=== PATIENT | male | born 1970 | race Caucasian/White ===

== ENCOUNTER 2017-01-23 03:49 | Emergency (ER) | payer BC, OTHER ==
[2017-01-23] MEDS ORDERED: Ketorolac 60 MG/2 ML SDV IM ONE (04:07)
[2017-01-23] MEDS ORDERED: Dexamethasone 4 MG/ML SDV IM ONE (04:07)
[2017-01-23] MEDS ORDERED: Ketorolac 60 MG/2 ML SDV ONE (04:10)
[2017-01-23] MEDS ORDERED: Dexamethasone 4 MG/ML SDV ONE (04:10)
--- NOTE | 2017-01-23 04:14 | EDM.PDOC ---
ED HPI GENERAL MEDICAL PROBLEM - General Chief Complaint: Upper Extremity Injury/Pain Stated Complaint: left shoulder pain Time Seen by Provider: 01/23/17 04:07 Source of Information: Reports: Patient History Limitations: Reports: No Limitations - History of Present Illness INITIAL COMMENTS - FREE TEXT/NARRATIVE: PT STATES HE DEVELOPED LEFT SHOULDER PAIN 2 DAYS AGO. TRIED USING AN ARM SLING BUT PAIN PERSISTS. UNABLE TO SLEEP. THINKS IT MAY HAVE STARTED WHEN HE LIFTED GAS CAN. DENIES FALL, FEVER, CP, SOB, NECK PAIN, OR H/O PAIN OR INJURY TO THAT SHOULDER Onset: Gradual Onset Date: 01/21/17 Duration: Day(s): Location: Reports: Upper Extremity, Left Quality: Reports: Ache Improves with: Reports: None Worsens with: Reports: Movement Associated Symptoms: Reports: No Other Symptoms - Related Data Home Meds: Home Meds Prednisone [IMW: predniSONE] 20 mg PO WITHBREAKFAST #5 tab 01/23/17 [Rx] traMADol [Ultram] 50 mg PO Q4H #20 tablet 01/23/17 [Rx] Review of Systems - Review of Systems Review Of Systems: ROS reveals no pertinent complaints other than HPI. Constitutional: Reports: No Symptoms Eyes: Reports: No Symptoms Ears: Reports: No Symptoms Nose: Reports: No Symptoms Mouth/Throat: Reports: No Symptoms Respiratory: Reports: No Symptoms Cardiovascular: Reports: No Symptoms GI/Abdominal: Reports: No Symptoms Genitourinary: Reports: No Symptoms Musculoskeletal: Reports: Shoulder Pain (LEFT) Skin: Reports: No Symptoms Neurological: Reports: No Symptoms Psychiatric: Reports: No Symptoms ED EXAM, GENERAL - Physical Exam Exam: See Below Exam Limited By: No Limitations General Appearance: Alert, WD/WN, Mild Distress Throat/Mouth: Normal Inspection, Normal Oropharynx, No Airway Compromise Head: Atraumatic, Normocephalic Neck: Normal Inspection, Supple, Non-Tender, Full Range of Motion Respiratory/Chest: No Respiratory Distress, Lungs Clear, Normal Breath Sounds, No Accessory Muscle Use, Chest Non-Tender Cardiovascular: Regular Rate, Rhythm, No Murmur Peripheral Pulses: 2+: Brachial (L), Radial (L) GI/Abdominal: Normal Bowel Sounds, Soft, Non-Tender Back Exam: Normal Inspection, Full Range of Motion Extremities: Arm Pain (LEFT SHOULDER LATERAL ASPECT PAIN WITH ROM. NO ERYTHEMA, EDEMA, CREPITUS, OR ECCHYMOSIS NOTED.) Neurological: Alert, Oriented, Normal Cognition Psychiatric: Normal Affect, Normal Mood Skin Exam: Warm, Dry, Intact, Normal Color, No Rash Lymphatic: No Adenopathy EKG INTERPRETATION EKG Date: 01/23/17 Time: 04:00 Rhythm: NSR Rate (Beats/Min): 67 Mar Lin: Normal P-Wave: Present QRS: Normal ST-T: Normal QT: Normal Comparison: NA - No Prior EKG Course - Orders/Labs/Meds Meds: Medications Discontinued Medications Generic Name Dose Route Start Last Admin Trade Name Adalq PRN Reason Stop Dose Admin Dexamethasone 8 mg 01/23/17 04:07 Dexamethasone IM 01/23/17 04:08 ONETIME ONE Ketorolac Tromethamine 60 mg 01/23/17 04:07 Toradol IM 01/23/17 04:08 ONETIME ONE - Re-Assessments/Exams Free Text/Narrative Re-Assessment/Exam: 01/23/17 04:25 PT AFEBRILE, NONTOXIC APPEARING, VSS, PAIN SUBSIDING. ARM IN SLING AND WILL F/U WITH PCP Departure - Departure Time of Disposition: 04:30 Disposition: Home, Self-Care 01 Condition: Good Clinical Impression: Sprain of shoulder Qualifiers: Encounter type: initial encounter Shoulder sprain type: unspecified sprain Laterality: left Qualified Code(s): S43.402A - Unspecified sprain of left shoulder joint, initial encounter - Discharge Information Referrals: Shereen May MD [Physician] - Forms: ED Department Discharge Additional Instructions: FOLLOW UP WITH PCP. RETURN TO ER IF SYMPTOMS CONTINUE - Assessment/Plan Assessment:: LEFT SHOULDER SPRAIN Plan: F/U WITH PCP
[2017-01-23] MEDS ORDERED: Acetaminophen/oxyCODONE 325-5 MG Tab PO ONE (04:18)
[2017-01-23 04:25] VITALS: BP 165/105
== END 2017-01-23 04:45 | disposition home or self-care (01) ==
LOC: KA.ED 03:49
DX: S43.402A Unspecified sprain of left shoulder joint, initial encounter (principal); X58.XXXA Exposure to other specified factors, initial encounter
CPT/HCPCS: 96372; 99283; A9270; J1100; J1885; 93005